=== PATIENT | female | born 1985 | race Caucasian/White ===

== ENCOUNTER → 2016-09-02 | Outpatient (CLI) | payer OTHER ==
[~2016-09-02] MED LIST: GADOBUTROL 10 ML VIAL IVP ONE
== END ==
LOC: FIMAGING 11:59
PROVIDERS: ATTEND Physician Assistant Medical
DX: R29.2 Abnormal reflex (principal); R20.2 Paresthesia of skin
CPT/HCPCS: A9585

== ENCOUNTER → 2016-12-23 | Outpatient (CLI) | payer OTHER | LOC: FIMAGING 11:57 | PROVIDERS: ATTEND Family Medicine | DX: R10.9 Unspecified abdominal pain (principal); K44.9 Diaphragmatic hernia without obstruction or gangrene; K59.00 Constipation, unspecified; Z98.51 Tubal ligation status ==

== ENCOUNTER → 2017-05-30 | Outpatient (CLI) | payer OTHER ==
--- NOTE | 2017-05-31 06:39 | CPEEG ---
[f rep st] ELECTROENCEPHALOGRAM DATE OF STUDY: 05/30/2017 DATE OF INTERPRETATION: May 30, 2017. HISTORY: The patient is a 32-year-old woman whom I have seen for neuropathy, but she also mentioned recently having some episodes where she has had some altered awareness. These are episodes lasting 3 0 or 60 seconds where she might have some motor manifestations such as twitching or contraction of th e eyes or muscles. She had a few of the episodes at age 17 and then nothing for 10 years until this more recent weekend. She is under a fairly high amount of stress she said lately with her daughter h aving a fall with liver trauma. INDICATION: Evaluate for seizure and epileptiform activity. DESCRIPTION OF THE RECORD: This is a technically adequate study obtained following partial sleep dep rivation. Background consists of a 10 Hz posterior predominant symmetric alpha rhythm which attenuat es on eye opening. Frontocentral beta activity is present. There are no areas of slowing or focal d ischarges and no epileptiform findings. She is hyperventilating with good effort and has symmetric b uildup. Photic stimulation produces symmetric driving responses at some frequencies. INTERPRETATION: This is a normal awake and light sleep EEG recording. /[id number]/MODL
== END ==
LOC: FCPNEURO 09:42
PROVIDERS: ATTEND Psychiatry & Neurology Neurology
DX: G43.109 Migraine with aura, not intractable, without status migrainosus (principal); G40.009 Localization-related (focal) (partial) idiopathic epilepsy and epileptic syndromes with seizures of localized onset, not intractable, without status epilepticus; G60.9 Hereditary and idiopathic neuropathy, unspecified

== ENCOUNTER → 2017-11-29 | Outpatient (CLI) | payer OTHER | LOC: FIMAGING 18:23 | PROVIDERS: ATTEND Psychiatry & Neurology Neurology | DX: R20.0 Anesthesia of skin (principal) ==